=== PATIENT | female | born 1980 | race African-American/Black ===

== ENCOUNTER 2017-05-08 05:49 | Inpatient (IN) | payer OTHER ==
[~2017-05-08] VITALS: Ht 160 cm; Wt 78.6 kg
[2017-05-08] MEDS ORDERED: OXYTOCIN 30U/ 0.9% NaCL 500ML 500 ML IV ONE (06:58)
[2017-05-08] MEDS ORDERED: SODIUM CHLORIDE FLUSH 10ML SYR IVF PRN (07:00)
[2017-05-08] MEDS ORDERED: ONDANSETRON 2MG/ML, 2ML IVPush PRN (07:00)
[2017-05-08] MEDS ORDERED: FENTANYL PF 100 MCG/2ML IV PRN (07:00)
[2017-05-08] MEDS ORDERED: FENTANYL PF 100 MCG/2ML IVPush PRN (07:00)
[2017-05-08 08:20] LABS: HEMATOCRIT 32.5 % (34.6-47.8); HEMOGLOBIN 10.5 g/dL (11.7-16.4); WHITE BLOOD COUNT 11.4 x10^3/uL (3.4-10)
[2017-05-08] MEDS ORDERED: NEWBORN KIT ONE (08:24)
[2017-05-08] MEDS ORDERED: OXYTOCIN 30U/ 0.9% NaCL 500ML 500 ML ONE (10:27)
[2017-05-08] MEDS ORDERED: OXYTOCIN 30U/ 0.9% NaCL 500ML 500 ML IV PRN (10:32)
[2017-05-08] MEDS ORDERED: LACTATED RINGERS 1,000 ML IV SCH (10:32)
[2017-05-08] MEDS ORDERED: CALCIUM CARBONATE 500 MG TAB.CHEW PO PRN ×2 (11:00→18:00)
[2017-05-08] MEDS ORDERED: ACETAMINOPHEN 325 MG TABLET PO PRN (18:00)
[2017-05-08] MEDS ORDERED: IBUPROFEN 600 MG TABLET PO PRN (18:00)
[2017-05-08] MEDS ORDERED: ONDANSETRON 2MG/ML, 2ML IV PRN (18:00)
[2017-05-08] MEDS ORDERED: DOCUSATE 100 MG CAPSULE PO PRN (18:00)
[2017-05-08] MEDS ORDERED: METOCLOPRAMIDE 5 MG/ML, 2ML IV PRN (18:00)
[2017-05-08] MEDS ORDERED: HYDROcodone/APAP 5/325 TABLET PO PRN ×2 (18:00)
[2017-05-08 20:20] VITALS: BP 115/81
[2017-05-08] MEDS: OXYTOCIN 30U/ 0.9% NaCL 500ML 500 ML IV SCH (20:20)
[2017-05-09 00:35] VITALS: BP 110/70
[2017-05-09 01:34] LABS: HEMATOCRIT 32.3 % (34.6-47.8); HEMOGLOBIN 10.4 g/dL (11.7-16.4); WHITE BLOOD COUNT 17.6 x10^3/uL (3.4-10)
[2017-05-09] MEDS ORDERED: IBUP-1222 PO (02:42)
[2017-05-09] MEDS ORDERED: DOCU-30 PO (02:44)
[2017-05-09] MEDS: OXYTOCIN 30U/ 0.9% NaCL 500ML 500 ML IV SCH (03:58)
[2017-05-09 05:05] VITALS: BP 109/74
[2017-05-09 07:30] VITALS: BP 124/82
[2017-05-09] MEDS ORDERED: PRENATAL VIT/IRON/FA 1 EACH TABLET PO SCH (09:00)
[2017-05-09] MEDS ORDERED: DIPH,PERTUSS(ACELL),TET VAC/PF NC IM-VACC ONE (11:30)
[2017-05-09 13:00] VITALS: BP 110/72
== END 2017-05-09 18:11 | disposition home or self-care (01) | DRG 775 ==
LOC: LDOP 05:49 → LDIP 07:08 → 2NW 19:51
PROVIDERS: ADMIT Specialist; ATTEND Specialist
PROC: 10E0XZZ Delivery of Products of Conception, External Approach (ICD-10-PCS; principal; 2017-05-08)
DX: O69.1XX0 Labor and delivery complicated by cord around neck, with compression, not applicable or unspecified (principal); O09.523 Supervision of elderly multigravida, third trimester; O71.82 Other specified trauma to perineum and vulva; Z3A.38 38 weeks gestation of pregnancy; Z37.0 Single live birth
CPT/HCPCS: 36415; 85025; 86850; 86900; 89060; 90715; J2590; J7120; Q0114